=== PATIENT | female | born 1955 | race African-American/Black ===

== ENCOUNTER 2016-12-01 12:04 | Inpatient (IN) | payer OTHER ==
[~2016-12-01] VITALS: Ht 160 cm; Wt 72.1 kg
[2016-12-01] MEDS ORDERED: OMEG1CAP13 PO (12:18)
[2016-12-01] MEDS ORDERED: METO25TA6 PO (12:18)
[2016-12-01] MEDS ORDERED: UBID1CAP54 PO (12:18)
[2016-12-01] MEDS ORDERED: AMLO2.5T PO (12:18)
[2016-12-01] MEDS ORDERED: ASPI-612 PO (12:18)
[2016-12-01] MEDS ORDERED: CALC-1119 PO (12:18)
--- NOTE | 2016-12-01 12:30 | NUR ---
pt is in room #1b. dr Patricia evaluated the pt.
[2016-12-01] MEDS ORDERED: ASPIRIN 81 MG TAB.CHEW PO ONE (12:45)
[2016-12-01] MEDS ORDERED: ASPIRIN 81 MG TAB.CHEW ONE (13:01)
[2016-12-01 13:12] LABS: BASOPHILS % (AUTO) 0.5 % (0.0-2.0); EOSINOPHILS % (AUTO) 0.4 % (0.0-7.0); HEMOGLOBIN 13.1 G/DL (12.0-16.0); LYMPHOCYTES # (AUTO) 1.5 K/UL (0.8-4.8); LYMPHOCYTES % (AUTO) 31.1 % (20.5-51.5); MEAN CORPUSCULAR HEMOGLOBIN 26.5 UUG (27.0-31.0); MEAN CORPUSCULAR HGB CONC 32 g/dL (32.0-37.0); MEAN CORPUSCULAR VOLUME 82.9 FL (81.0-99.0); MONOCYTES # (AUTO) 0.3 K/UL (0.1-1.30); MONOCYTES % (AUTO) 6.4 % (0.0-11.0); NEUTROPHILS # (AUTO) 3.1 K/UL (1.8-8.9); NEUTROPHILS % (AUTO) 61.6 % (38.5-71.5); PLATELET COUNT (AUTO) 223 K/UL (150-450); RED BLOOD CELL COUNT(AUTO) 4.95 MIL/UL (4.2-5.4); WHITE BLOOD COUNT (AUTO) 4.9 K/UL (4.0-11.2)
[2016-12-01 13:22] LABS: CREATININE 0.8 mg/dL (0.6-1.3); POTASSIUM 3.8 mmol/L (3.5-5.1)
--- NOTE | 2016-12-01 15:55 | NUR ---
REPORT WAS GIVEN TO FIELD INVESTIGATOR. PT WAS TRANSFERED TO TELEMETRY ROOM #207.
--- NOTE | 2016-12-01 16:30 | NUR ---
RECEIVED PATIENT FOR ADMISSION 61 YEARS OLD FEMALE FROM ED TO ROOM 207.PLACED INTO BED FIXED AND MADE COMFORTABLE.PATIENT IS ALERT AND ORIENTED DENIES PAIN OR DISCOMFORTS AT THIS TIME.ORIENTED TO ROOM AND FACILITY PROTOCOL.ON ROOM AIR WITH NO SHORTNESS OF BREATH AT THIS TIME.CALLED DR BURRIS AND LEFT HIM A MESSAGE.
[2016-12-01 16:44] VITALS: BP 139/81
--- NOTE | 2016-12-01 18:00 | NUR ---
ORDER FOR CARDIAC DIET RECEIVED AND NOTED.
[2016-12-01] MEDS ORDERED: MAGNESIUM HYDROXIDE 30 ML LIQUID UDC PO PRN (19:30)
[2016-12-01] MEDS ORDERED: ONDANSETRON 4 MG/2 ML VIAL IV PRN (19:30)
[2016-12-01] MEDS ORDERED: ZOLPIDEM 5 MG TABLET PO PRN (19:30)
[2016-12-01] MEDS ORDERED: ACETAMINOPHEN 325 MG TABLET PO PRN (19:30)
[2016-12-01] MEDS ORDERED: HYDROCODONE/APAP 5-325MG TABLET PO PRN (19:30)
--- NOTE | 2016-12-01 20:00 | NUR ---
RECEIVED PATIENT AWAKE IN BED. A/O X4 BUT VERY PASSIVE WITH FLAT AFFECT WHEN APPROACHED. DENIES CHEST PAIN. PATIENT AWARE THAT SHE WILL NPO AFTER MIDNIGHT FOR STRESS TEST IN AM. VERBALIZED UNDERSTANDING. ON TELE SB 50'S. CALL LIGHT IN REACH. ALL NEEDS ATTENDED. WILL CONTINUE TO MONITOR.
[2016-12-01] MEDS: DOCUSATE SODIUM 100 MG CAPSULE PO SCH ×2 (20:42→20:49)
[2016-12-01] MEDS: OMEGA-3 FATTY ACIDS/FISH OIL CAPSULE PO SCH ×2 (20:43→20:49)
[2016-12-01] MEDS: METOPROLOL TARTRATE 25 MG TABLET PO SCH (20:43)
[2016-12-01 20:52] VITALS: BP 118/79
[2016-12-01] MEDS ORDERED: DOCUSATE SODIUM 250 MG CAPSULE PO SCH (21:00)
--- NOTE | 2016-12-02 | NUR ---
PATIENT NPO ORDERED.
[2016-12-02 00:07] VITALS: BP 122/73
[2016-12-02 04:00] VITALS: BP 111/78
--- NOTE | 2016-12-02 05:22 | NUR ---
PATIENT AWAKE IN BED. REFUSED AM LABS. PATIENT IS VERY ABRUPT AND RUDE TOWARDS STAFF. MADE PATIENT COMFORTABLE POSSIBLE BUT PATIENT SEEMS TO REMAIN UNSATISFIED. SEED PACKER NOTIFIED REGARDING PATIENTS BEHAVIOR TOWARDS STAFF. ALL NEEDS ATTENDED.
--- NOTE | 2016-12-02 06:56 | NUR ---
PATIENT REFUSED TO SIGN CONSENT AT THIS TIME. WANTS TO SPEAK WITH MARY IN [facility] FIRST. PAINTER AND BODY WORK NOTIFIED. ON TELE SB 50'S. ALL NEEDS ATTENDED.
[2016-12-02] MEDS ORDERED: PANTOPRAZOLE SODIUM 40 MG TABLET.DR PO SCH (07:00)
--- NOTE | 2016-12-02 08:00 | NUR ---
resting in bed, denies of chest pain,no shortness of breath noted, tele, SR 60's, up and about in the room, explained plan fo care- verbalized understanding but wants to speak to director of nuclear medicine before she signs the consent for [place] stress test. Margo from [place] called to give pt's breakfast since will do first part of test at 1130- pt informed and breakfast tray served, call light within reach
--- NOTE | 2016-12-02 08:15 | NUR ---
Margo SCOTT came and spoke to pt, refused am meds, spoke to charge nurse and wanted to go AMA
[2016-12-02] MEDS: OMEGA-3 FATTY ACIDS/FISH OIL CAPSULE PO SCH (08:18)
--- NOTE | 2016-12-02 08:18 | NUR ---
AMA papers signed-tele d/cd and saline lock removed- no swelling/redness noted on site
[2016-12-02] MEDS: METOPROLOL TARTRATE 25 MG TABLET PO SCH (08:20)
--- NOTE | 2016-12-02 08:20 | NUR ---
pt refused to have stress done
[2016-12-02 08:21] VITALS: BP 111/78
--- NOTE | 2016-12-02 08:45 | NUR ---
discharge papers given and belongings list signed- waiting for her ride
--- NOTE | 2016-12-02 08:55 | NUR ---
called Dr Nasir MARTINEZ MD in the hospital per exchange
[2016-12-02] MEDS ORDERED: FATTY ACIDS PO SCH (09:00)
[2016-12-02] MEDS ORDERED: FISH OIL PO SCH (09:00)
[2016-12-02] MEDS ORDERED: AMLODIPINE 2.5 MG TABLET PO SCH (09:00)
[2016-12-02] MEDS ORDERED: VITAMIN D3 PO SCH (09:00)
[2016-12-02] MEDS ORDERED: CALCIUM CARB/VITAMIN D 600-400 MG TABLET PO SCH (09:00)
[2016-12-02] MEDS ORDERED: [UNRECOGNIZED DRUG - OTHER] PO SCH (09:00)
[2016-12-02] MEDS ORDERED: CALCIUM CARBONATE PO SCH (09:00)
[2016-12-02] MEDS ORDERED: [UNRECOGNIZED DRUG - OTHER] PO SCH (09:00)
[2016-12-02] MEDS ORDERED: OMEGA PO SCH (09:00)
--- NOTE | 2016-12-02 09:00 | NUR ---
Dr Best here and spoke to pt- RX for given
--- NOTE | 2016-12-02 09:10 | NUR ---
pt not discharged by Dr Best- pt still wants to go AMA
--- NOTE | 2016-12-02 09:10 | NUR ---
escorted to lobby in stable condition with all belongings
[2016-12-02] MEDS ORDERED: REGADENOSON 0.4 MG/5 ML PREFILLED SYR IV ONE (13:00)
== END 2016-12-02 09:10 | disposition left against medical advice (07) | DRG 303 ==
LOC: ER 12:04 → TELE 16:06
PROVIDERS: ADMIT Internal Medicine
DX: I25.119 Atherosclerotic heart disease of native coronary artery with unspecified angina pectoris (principal); D68.59 Other primary thrombophilia; I11.9 Hypertensive heart disease without heart failure; I42.9 Cardiomyopathy, unspecified; I10 Essential (primary) hypertension; B37.3 Candidiasis of vulva and vagina; I34.1 Nonrheumatic mitral (valve) prolapse; Z85.41 Personal history of malignant neoplasm of cervix uteri; Z79.82 Long term (current) use of aspirin; Z79.899 Other long term (current) drug therapy; I51.9 Heart disease, unspecified
CPT/HCPCS: 36415; 70030-TC; 71010; 85025; 85730; 93005; 93307; A4663